=== PATIENT | male | born 1960 | race Caucasian/White ===

== ENCOUNTER → 2022-01-01 14:11 | Outpatient (CLI) | payer OTHER, SELFPAY ==
--- NOTE | ~2022-01-01 | XR_ITS ---
EXAMINATION: XR knee RT min 4V DATE: 01/01/2022 14:24 INDICATION: Right knee pain. TECHNIQUE: 4 views of right knee including standing views were obtained. COMPARISON: None. FINDINGS: Bone alignment is normal. No fracture. There is moderate osteoarthritis of medial compartme nt and mild osteoarthritis of lateral and patellofemoral compartments. No knee joint effusion. IMPRESSION: 1. Moderate right knee osteoarthritis. Reviewed, dictated and finalized at location B.
== END ==
PROVIDERS: PCP Family Medicine; Visit Provider Family Medicine
DX: M17.11 Unilateral primary osteoarthritis, right knee (principal)
CPT/HCPCS: 73564

== ENCOUNTER 2022-06-30 16:55 | Emergency (ER) | payer OTHER, SELFPAY ==
--- NOTE | 2022-06-30 17:04 | ED.WOUNDLAC ---
HPI - Wound/Laceration General Chief Complaint: Wound/Laceration Stated Complaint: forehead injury Time Seen by Provider: 06/30/22 17:00 Source: patient, family and RN notes reviewed History of Present Illness HPI narrative: Patient is 61-year-old male who presents the urgent care with complaints of a laceration across the forehead that happened approximately 1 hour ago. Patient states that a shelf fell on his head. Patient denies of any loss of consciousness and is currently not having any changes in vision or headache. Patient is not on a blood thinner. States that he had a tetanus shot in 2017. No other acute complaints. No acute distress noted. Patient read the plan of care. Some parts of this dictation were generated by voice recognition software and may contain typographical and/or grammatical inaccuracies. Related Data Home Medications Medication Instructions Recorded Confirmed cetirizine 10 mg tablet (All Day 10 mg PO DAILY PRN 06/27/21 01/01/22 Allergy (cetirizine)) Allergies Allergy/AdvReac Type Severity Reaction Status Date / Time No Known Allergies Allergy Verified 02/27/22 07:55 Review of Systems Review of Systems: CONSTITUTIONAL: Denies fever, chills, or sweats. EYES: Denies visual changes, redness, or discharge. ENT: Denies rhinorrhea, congestion, sore throat, or otalgia. CARDIOVASCULAR: Denies chest pain, palpitations, or edema. RESPIRATORY: Denies cough or dyspnea. GASTROINTESTINAL: Denies abdominal pain, nausea, vomiting, or diarrhea. GENITOURINARY: Denies dysuria or hematuria. SKIN: Reports of a laceration to the forehead MUSCULOSKELETAL: Denies back pain, joint pain, or myalgia. NEUROLOGIC: Denies headache, numbness, or weakness. All other systems reviewed are negative, except as documented in HPI. [facility] Past Medical History Medical History Actinic keratosis Acute non-recurrent maxillary sinusitis Arthritis BMI 34.0-34.9,adult BPH without obstruction/lower urinary tract symptoms Cataract (~1999) Chronic pain of right knee Moderate osteoarthritis of the right knee on x-ray on 01/01/2022. Encounter for prostate cancer screening Encounter for wellness examination in adult Headache Hypersomnia Obesity (BMI 30.0-34.9) Right knee meniscal tear (~2016) Seasonal allergic rhinitis Surgical History Surgical History History of surgical removal of meniscus of knee Hx of detached retina repair (~2000) Family History Family History Father Malignant neoplasm of prostate Hypertension Heart disease Lymphoma Mother Breast cancer Hypertension Cerebrovascular accident Sibling Cerebrovascular accident Skin cancer Social History Social History Smoking status: Never smoker Alcohol intake: current Drinks per week: 2 Alcohol use details: beer/wine Substance use: never Substance use type: does not use Comments At the time of my signature, I reviewed and agree with the nursing past medical, surgical, social, and family history. There is no relevant family history pertinent to the patient complaint. Exam Narrative: GENERAL: This is a well-nourished, well-developed patient, in no apparent distress. HEAD: normocephalic, atraumatic. EYES: PERRL. Sclera clear/white. Vision is grossly intact. EARS: External ears normal NOSE: External nose normal with no obvious nasal discharge, nares without redness, no rhinorrhea. THROAT: Mucous membranes moist NECK: Neck supple CARDIOVASCULAR: Regular rate and rhythm RESPIRATORY: Clear to auscultation. Breath sounds equal bilaterally. No wheezes, rales, or rhonchi. SKIN: 4 cm linear laceration to the forehead. Warm, intact with no suspicious lesions or rash, good texture and turgor. NEURO: awake, alert, and
[2022-06-30 17:12] VITALS: BP 143/105; PULSE 94; RESP 16; TEMP 37.1; O2SAT 98
== END 2022-06-30 17:56 | disposition home or self-care (01) ==
PROVIDERS: Emergency Provider Nurse Practitioner Family; PCP Family Medicine
DX: S01.81XA Laceration without foreign body of other part of head, initial encounter (principal); W20.8XXA Other cause of strike by thrown, projected or falling object, initial encounter; M19.90 Unspecified osteoarthritis, unspecified site; E66.9 Obesity, unspecified; Z68.33 Body mass index [BMI] 33.0-33.9, adult; N40.1 Benign prostatic hyperplasia with lower urinary tract symptoms
CPT/HCPCS: 12013; 99212; G0463

== ENCOUNTER 2023-10-17 05:49 | Day surgery (SDC) | payer OTHER, SELFPAY ==
--- NOTE | 2023-10-16 10:44 | WPDANESEPPF ---
Anes - Initial Pre Proc Eval Procedure: Operation Date: 10/17/23 07:30 Proposed Procedures p Screening Colonoscopy - Luis Patel MD Date/Time: 10/16/23 10:44 Surgeon: Luis Patel MD Pre Op Diagnosis: Neoplasm Screening Patient Data Age: 63 Gender: M Height: 1.8 m Weight: 116.573 kg Allergies Allergy/AdvReac Type Severity Reaction Status Date / Time No Known Allergies Allergy Verified 10/17/23 06:21 Home Medications Medication Instructions Recorded Confirmed Type cetirizine 10 mg tablet (All Day 10 mg PO DAILY PRN Allergic 06/27/21 10/17/23 History Allergy (cetirizine)) Symptoms sodium,potassium,mag sulfates 17.5 See Rx Instructions PO .COMPLEX 08/02/23 10/17/23 Rx gram-3.13 gram-1.6 gram oral soln #354 mL (Suprep Bowel Prep Kit) nirmatrelvir 300 mg (150 mg See Rx Instructions PO .COMPLEX 09/30/23 10/17/23 Rx x2)-ritonavir 100 mg tablet,dose #30 ea pack (Paxlovid) Vitamin C 1 pill PO DIRECTED 10/01/23 10/17/23 History Patient hx anesthesia problems: none Family hx anesthesia problems: none Results Review: All pre-operative results and documents have been reviewed as part of the pre-operative evaluation. [facility] Past Medical History Medical History (Updated 09/30/23 @ 14:17 by Benito Wheeler MD) Actinic keratosis Acute non-recurrent maxillary sinusitis BMI 34.0-34.9,adult BMI 35.0-35.9,adult BPH without obstruction/lower urinary tract symptoms Cataract (~1999) Chronic pain of right knee Moderate osteoarthritis of the right knee on x-ray on 01/01/2022. Colon cancer screening patient reports normal colonoscopy at age 52 with recheck in 10 years. COVID-19 (09/28/23) Encounter for prostate cancer screening PSA 1.6 on 07/31/2022. PSA 1.3 on 08/01/2023. Encounter for wellness examination in adult Headache Hypersomnia Obesity (BMI 30-39.9) Obesity (BMI 30.0-34.9) Renal stone (~07/2021) passed stone at home 2 weeks after last prostate exam 2020 Right knee meniscal tear (~2016) Seasonal affective disorder (~07/31/23) Seasonal allergic rhinitis Surgical History Surgical History (Updated 01/29/23 @ 15:32 by Js Starr MD) History of surgical removal of meniscus of knee 2017 - Dr. Pereira Hx of detached retina repair (~2000) Family History Family History Father Malignant neoplasm of prostate Hypertension Heart disease Lymphoma Mother Breast cancer Hypertension Cerebrovascular accident Sibling Cerebrovascular accident Skin cancer Social History Social History Smoking status: Never smoker Alcohol intake: current Drinks per week: 3 Alcohol use details: beer/wine Substance use: never Substance use type: does not use Lack of Transportation: No Lack of Food: Never True Current Housing: I Have Housing Concerned About Future Housing: No Difficulty Paying Gas/Electric Bills: No Difficulty Paying for Meds: No Currently Unemployed: No Education: Bachelor's Degree Difficulty w/ Childcare or Family Care: No Living arrangements: with family Anes - Eval Final PreProcedure Day of Procedure 10/16/23 10:44 Patient weight: obese Heart: regular rate and rhythm Lungs: clear to auscultation Airway: Mallampati scale class II Neurological: alert and oriented Last oral intake: >/= 8 hours ASA classification: II Emergent: no Anesthetic plan: proceed Anesthesia type and monitoring: general GIVS and standard monitoring Results Review: All pre-operative results and documents have been reviewed as part of the pre-operative evaluation. Informed Consent: The patient's anesthetic plan and its attendant risks and benefits were discussed with the patient/family/POA. Questions were solicited and answers provided to the satisfaction of the patient/family/POA.
[2023-10-17 06:23] VITALS: BP 149/101; PULSE 73; RESP 20; TEMP 36.8; O2SAT 96
[2023-10-17] MEDS: LACTATED RINGERS 1,000 ML 150 ML IV CONT (06:34)
--- NOTE | 2023-10-17 07:05 | PM.HPGS ---
History of Present Illness History of Present Illness Consent: Risks, benefits, and alternatives have been discussed and questions answered. Patient agrees to proceed with procedure. Chief complaint: Neoplasm Screening Narrative: Ace Boles is a 63 year old male presents for screening colonoscopy. Patient reports his current weight appetite and bowel movements are normal. Patient denies abdominal pain. He has had no bleeding. Previous colonoscopy 10 years ago was unremarkable. Review of Systems Review of Systems: Review of systems is noncontributory. [facility] Past Medical History Medical History (Updated 09/30/23 @ 14:17 by Benito Wheeler MD) Actinic keratosis Acute non-recurrent maxillary sinusitis BMI 34.0-34.9,adult BMI 35.0-35.9,adult BPH without obstruction/lower urinary tract symptoms Cataract (~1999) Chronic pain of right knee Moderate osteoarthritis of the right knee on x-ray on 01/01/2022. Colon cancer screening patient reports normal colonoscopy at age 52 with recheck in 10 years. COVID-19 (09/28/23) Encounter for prostate cancer screening PSA 1.6 on 07/31/2022. PSA 1.3 on 08/01/2023. Encounter for wellness examination in adult Headache Hypersomnia Obesity (BMI 30-39.9) Obesity (BMI 30.0-34.9) Renal stone (~07/2021) passed stone at home 2 weeks after last prostate exam 2020 Right knee meniscal tear (~2016) Seasonal affective disorder (~07/31/23) Seasonal allergic rhinitis Surgical History Surgical History (Updated 01/29/23 @ 15:32 by Js Starr MD) History of surgical removal of meniscus of knee 2016 - Dr. Pereira Hx of detached retina repair (~2000) Family History Family History Father Malignant neoplasm of prostate Hypertension Heart disease Lymphoma Mother Breast cancer Hypertension Cerebrovascular accident Sibling Cerebrovascular accident Skin cancer Social History Social History Smoking status: Never smoker Alcohol intake: current Drinks per week: 3 Alcohol use details: beer/wine Substance use: never Substance use type: does not use Lack of Transportation: No Lack of Food: Never True Current Housing: I Have Housing Concerned About Future Housing: No Difficulty Paying Gas/Electric Bills: No Difficulty Paying for Meds: No Currently Unemployed: No Education: Bachelor's Degree Difficulty w/ Childcare or Family Care: No Living arrangements: with family Meds Home Medications and Allergies Home Medications Medication Instructions Recorded Confirmed Type cetirizine 10 mg tablet (All Day 10 mg PO DAILY PRN Allergic 06/27/21 10/17/23 History Allergy (cetirizine)) Symptoms sodium,potassium,mag sulfates 17.5 See Rx Instructions PO .COMPLEX 08/02/23 10/17/23 Rx gram-3.13 gram-1.6 gram oral soln #354 mL (Suprep Bowel Prep Kit) nirmatrelvir 300 mg (150 mg See Rx Instructions PO .COMPLEX 09/30/23 10/17/23 Rx x2)-ritonavir 100 mg tablet,dose #30 ea pack (Paxlovid) Vitamin C 1 pill PO DIRECTED 10/01/23 10/17/23 History Allergies Allergy/AdvReac Type Severity Reaction Status Date / Time No Known Allergies Allergy Verified 10/17/23 06:21 Vital Signs Vital Signs - 24 hr 10/17/23 06:23 Temperature 98.3 F Pulse Rate 73 Respiratory Rate 20 Blood Pressure 149/101 H Pulse Oximetry 96 Oxygen Delivery Room Air Exam Narrative: Physical exam reveals patient to be alert. Vital signs stable. HEENT exam is unremarkable. Patient is anicteric. Lungs are clear to auscultation and to percussion. Heart is without murmur or extra sounds. Abdomen bowel sounds are present soft nontender with an [employer] Kelsey. Digital external rectal exam is normal. Assessment and Plan Assessment and plan (1) Colon cancer screening: Code(s): Z12.11 - Encounter for screening for malignant
[2023-10-17] MEDS: SIMETHICONE ORAL SUSPENSION 20 MG/0.3 ML 30 ML BOTTLE 0.6 ML IRRIGATION (07:28)
[2023-10-17 07:39] VITALS: BP 136/94; PULSE 73; RESP 16; O2SAT 97
[2023-10-17 07:40] VITALS: BP 132/90; PULSE 68; RESP 16; O2SAT 97
[2023-10-17 07:50] VITALS: BP 137/90; PULSE 68; RESP 16; O2SAT 99
[2023-10-17 07:55] VITALS: BP 139/90; PULSE 70; RESP 16; O2SAT 99
--- NOTE | 2023-10-17 11:30 | WPDANESPN ---
Anes - Prog Note Post-Op Date/Time: 10/17/23 11:30 Cardiovascular status: normal Respiratory status: normal Airway patency: baseline Mental status: baseline Post-Op hydration status: normal Vital Signs: Last Vital Signs Temp 36.8 C 10/17/23 06:23 Pulse 70 10/17/23 07:55 Resp 16 10/17/23 07:55 BP 139/90 10/17/23 07:55 Pulse Ox 99 10/17/23 07:55 O2 Del Method Room Air 10/17/23 07:55 Pain Score (VAS): 0 I/O: Intake & Output 10/16/23 10/17/23 10/17/23 23:59 07:59 15:59 Intake Total 400 300 Balance 400 300 Post-procedural complaints: none Patient Feedback: Patient satisfied with anesthetic care. Other Findings: Patient vital signs back to baseline. Patient denies nausea and vomiting. Patient's pain under control. Patient OK for discharge.
== END 2023-10-17 08:08 | disposition home or self-care (01) ==
PROVIDERS: PCP Family Medicine; Visit Provider Internal Medicine Gastroenterology
PROC: 0DJD8ZZ Inspection of Lower Intestinal Tract, Via Natural or Artificial Opening Endoscopic (ICD-10-PCS; CPT 45378; principal; 2023-10-17 07:30)
DX: Z12.11 Encounter for screening for malignant neoplasm of colon (principal); D12.5 Benign neoplasm of sigmoid colon; K57.30 Diverticulosis of large intestine without perforation or abscess without bleeding; K64.8 Other hemorrhoids
CPT/HCPCS: 45385

== ENCOUNTER 2024-01-09 15:10 | Outpatient (CLI) | payer OTHER, SELFPAY ==
--- NOTE | ~2024-01-09 | MR_ITS ---
EXAMINATION: MR knee LT wo con DATE: 01/09/2024 15:52 INDICATION: Left knee pain TECHNIQUE: Magnetic resonance imaging (MRI) of the left knee was performed without intravenous contra st. Sequences included coronal PD-weighted FSE, coronal PD-weighted FS FSE, sagittal T2-weighted FSE , sagittal PD-weighted FS FSE and axial PD weighted fat saturated FSE. COMPARISON: Left knee radiographs dated 11/22/2023 FINDINGS: Medial compartment: Complex tear of the posterior horn of the medial meniscus with displacement of a flap comprising a po rtion of the lateral side of the posterior horn which is flipped cephalad along the medial margin of the vertical/distal portion of the posterior cruciate ligament. There is a 6 x 5 mm partial-thickness chondral ulceration involving approximately 50% the cartilage thickness but without degenerative sub chondral changes at the central aspect of the anterior weightbearing medial femoral condyle. Minimal subarticular edema-like signal change underlying the lateral side of the posterior horn medial menisc us which could relate either stress reaction related to altered weight distribution resulting from th e meniscal tear or due to overlying chondromalacia. Lateral compartment: Lateral meniscus is normal. Small region of deep chondral ulceration at the anterior weightbearing la teral femoral condyle and juxtaposed central aspect of the lateral tibial plateau, the former with mi nimal underlying subarticular edema-like signal change. Patellofemoral compartment: There is deep chondral ulceration with underlying subarticular edema-like signal change at both the m edial and lateral patellar facets. Additional small focus of subarticular edema-like signal change at the lateral trochlea but without evident overlying cartilage ulceration or fissuring. Ligaments and tendons: Anterior and posterior cruciate ligaments are normal. The medial collateral ligament and fibular denise ateral ligament complex are normal. The extensor mechanism is normal. The visualized medial and later al hamstring tendons as well as the iliotibial band are normal. Fluid: Small amount of fluid and mild synovitis at the suprapatellar pouch. No loose osteochondral bodies id entified. There is a moderate-sized Watts's cyst which measures 5.3 cm craniocaudally by 3.1 x 1.5 cm in maximal transaxial dimensions. Osseous/other: Bone alignment is normal. No fracture or pathologic marrow replacing process. IMPRESSION: 1. Complex. The posterior horn of the medial meniscus with displaced meniscal flap. 2. Mild tricompartmental osteoarthritis with small regions of moderate and high-grade chondromalacia in the medial lateral compartments and more extensively along the patella in the patellofemoral saravanan rtment. 3. Likely reactive small knee joint effusion with mild synovitis. 4. Moderate-sized Watts's cyst. Reviewed, dictated and finalized at location A. IMPRESSION: 1. Complex. The posterior horn of the medial meniscus with displaced meniscal f lap. 2. Mild tricompartmental osteoarthritis with small regions of moderate and high -grade chondromalacia in the medial lateral compartments and more extensively a long the patella in the patellofemoral compartment. 3. Likely reactive small knee joint effusion with mild synovitis. 4. Moderate-sized Watts's cyst.
== END 2024-01-09 15:11 ==
PROVIDERS: PCP Family Medicine; Visit Provider Nurse Practitioner Family
DX: M25.562 Pain in left knee (principal); S83.232A Complex tear of medial meniscus, current injury, left knee, initial encounter; M17.12 Unilateral primary osteoarthritis, left knee; M25.462 Effusion, left knee; M71.22 Synovial cyst of popliteal space [Baker], left knee
CPT/HCPCS: 73721

== ENCOUNTER 2024-01-28 01:50 | Day surgery (SDC) | payer OTHER, SELFPAY ==
[2024-01-22 14:10] VITALS: BMI 34.0
--- NOTE | 2024-01-22 14:11 | PC.NURSE ---
Report to the Outpatient Waiting Room, entrance under the green pavilion located off [facility], at time _1100_ on date _[id number]_. Planned Procedure Time: _1300_. Time changes happen often and if your time is changed the preop area will call you the afternoon before. - You and your visitor will be asked to self-screen and do not enter if you have any COVID symptoms. - A mask is optional within the hospital at this time. Patients may have clear liquids (water, carbonated beverages, clear teas, apple juice) until 3 hours prior to surgery with a maximum of 20 ounces. - No food from midnight until time of surgery Take the following medications with a SIP of water the morning of surgery: ____None DO NOT STOP ANY OF YOUR OTHER PRESCRIPTION MEDICATIONS PRIOR TO SURGERY ?EXCEPT THE FOLLOWING Medications to discontinue per physician ____Vitamin C Date to take last [id number] Stop Ibuprofen as instructed by Dr Singletary. Please no make-up, nail rwandan, hairspray, perfume, deodorant, or body powder the day of surgery. No jewelry (including any body piercings) or valuables the day of surgery, leave them at home. Please take a shower or bath the night before, or the morning of, surgery with an antibacterial soap. Wear comfortable, loose fitting clothing. - Jewelry must be removed prior to entering the operating room. Rings and piercings that are not removed may be cut off. - The hospital will not accept responsibility for valuables. - Please leave all valuables, including medications, at home the day of surgery. If you are going home after surgery, a licensed route driver salesperson must drive you home. - NO public transportation without another adult if you receive anesthesia. - We recommend that an adult stay with you for 24 hours following discharge. - We also recommend that you do not drive, make important decision, drink alcoholic beverages, or take any drugs that were not prescribed by your health care provider for at least 24 hours after your discharge time. Follow any additional instructions given to you from your surgeon. If you or anyone in your household have experienced Covid symptoms in the past week, please notify your surgeon or the nurse liaison at the phone number below for possible testing. Telephone instructions given to _Ace___and asked if any additional questions and then verbalized understanding. Patient advised to call surgeon office or pre surgery nurse liaison [phone] if any additional questions.
[2024-01-28] VITALS (12 sets, daily range): BP systolic 147–183; BP diastolic 90–119; PULSE 66–86; RESP 12–16; TEMP 36.1–36.2; O2SAT 94–100
--- NOTE | 2024-01-28 08:36 | WPDHPUPDATE1 ---
History and Physical Update Update Date/Time: 01/28/24 08:36 History and Physical has been reviewed, including an updated exam of the patient. There are NO changes in the patient's condition. Risks, benefits, and alternatives have been discussed and questions answered. Patient agrees to proceed with procedure.
[2024-01-28] MEDS: CELECOXIB 200 MG CAPSULE PO (12:05)
[2024-01-28] MEDS: ACETAMINOPHEN 500 MG TABLET 1000 MG PO (12:05)
[2024-01-28] MEDS: LACTATED RINGERS 1,000 ML 30 ML IV CONT ×2 (12:17→14:50)
--- NOTE | 2024-01-28 12:56 | WPDANESEPPF ---
Anes - Initial Pre Proc Eval Procedure: Operation Date: 01/28/24 13:30 Proposed Procedures p Left Knee Arthroscopy - Charlie Singletary MD Date/Time: 01/28/24 12:56 Surgeon: Charlie Singletary MD Pre Op Diagnosis: left knee medial meniscus tear Patient Data Age: 63 Gender: M Height: 1.83 m Weight: 113.6 kg Allergies Allergy/AdvReac Type Severity Reaction Status Date / Time No Known Allergies Allergy Verified 01/28/24 11:52 Home Medications Medication Instructions Recorded Confirmed Type cetirizine 10 mg tablet (All Day 10 mg PO DAILY PRN Allergic 06/27/21 01/28/24 History Allergy (cetirizine)) Symptoms Vitamin C 1 pill PO DIRECTED 10/01/23 01/28/24 History chlorhexidine gluconate 4 % 1 applic topical ONCE #237 mL 01/21/24 01/22/24 Rx topical liquid (Hibiclens) ibuprofen 200 mg tablet 600 mg PO Q6H PRN Pain 01/22/24 01/28/24 History hydrocodone 5 mg-acetaminophen 325 1 tablet PO Q12H PRN pain #20 tabs 01/28/24 Rx mg tablet Patient hx anesthesia problems: none Family hx anesthesia problems: none Results Review: All pre-operative results and documents have been reviewed as part of the pre-operative evaluation. [facility] Past Medical History Medical History Actinic keratosis Acute non-recurrent maxillary sinusitis BMI 34.0-34.9,adult BMI 35.0-35.9,adult BPH without obstruction/lower urinary tract symptoms Cataract (~1999) Chronic pain of right knee Moderate osteoarthritis of the right knee on x-ray on 01/01/2022. Colon cancer screening patient reports normal colonoscopy at age 52 with recheck in 10 years. COVID-19 (09/28/23) Effusion of knee joint Encounter for prostate cancer screening PSA 1.6 on 07/31/2022. PSA 1.3 on 08/01/2023. Encounter for wellness examination in adult Headache Hypersomnia Left knee DJD Left knee pain Medial meniscus tear Obesity (BMI 30-39.9) Obesity (BMI 30.0-34.9) Polyp of colon (10/17/23) small polyp sigmoid colon 10/17/2023. Renal stone (~07/2021) passed stone at home 2 weeks after last prostate exam 2020 Right knee DJD Right knee meniscal tear (~2016) Seasonal affective disorder (~07/31/23) Seasonal allergic rhinitis Surgical History Surgical History History of surgical removal of meniscus of knee 2017 - Dr. Pereira Hx of detached retina repair (~2000) Family History Family History Father Malignant neoplasm of prostate Hypertension Heart disease Lymphoma Mother Breast cancer Hypertension Cerebrovascular accident Sibling Cerebrovascular accident Skin cancer Social History Social History Smoking status: Never smoker Alcohol intake: current Drinks per week: 3 Alcohol use details: beer/wine Substance use: never Substance use type: does not use Lack of Transportation: No Lack of Food: Never True Current Housing: I Have Housing Concerned About Future Housing: No Difficulty Paying Gas/Electric Bills: No Difficulty Paying for Meds: No Currently Unemployed: No Education: Bachelor's Degree Difficulty w/ Childcare or Family Care: No Living arrangements: with family Spiritual care concerns: No Anes - Eval Final PreProcedure Day of Procedure 01/28/24 12:56 Patient weight: obese Heart: regular rate and rhythm Lungs: clear to auscultation Airway: Mallampati scale and special considerations (Chip to L upper incisor. ) Neurological: alert and oriented Last oral intake: >/= 8 hours ASA classification: II Emergent: no Anesthetic plan: proceed Anesthesia type and monitoring: general LMA and standard monitoring Results Review: All pre-operative results and documents have been reviewed as part of the pre-operative evaluation. Informed Consent: The
[2024-01-28] MEDS: ceFAZolin 2 GM/D5W 50 ML 2 GM/50 ML BAG IVPB (13:15)
[2024-01-28] MEDS: BUPivacaine HCL 0.5% 10 ML AMP 30 ML INFILTRATE (13:42)
--- NOTE | 2024-01-28 14:54 | W.PM.PROC2 ---
Procedure Note - Detailed Date of Procedure 01/28/24 Pre-op Diagnosis left knee medial meniscus tear Post-op Diagnosis Other (LEFT MEDIAL AND LATERAL MENISCUS TEAR) Procedure Performed LEFT KNEE SCOPE Surgeon Charlie Singletary MD Anesthesia General Description of Procedure PATIENT WAS TAKEN TO THE OR. THE LEFT LEG WAS PREPPED AND DRAPED STERILE. TROCARS WERE PLACED IN THE USUAL FASHION. CAMERA WAS INTRODUCED. THERE WAS CHONDROMALACIA TO THE PATELLA FEMORAL JOINT. THERE WAS A LOT OF SYNOVITIS IN ALL COMPARTMENTS. THE MEDIAL COMPARTMENT SHOWED GRADE 3 CHONDROMALACIA TO THE MEDIAL FEMORAL CONDYLE. A SHAVER WAS USED TO PREFORM A CHONDROPLASTY. THERE WAS A LARGE COMPLEX MEDIAL MENISCUS TEAR WHICH INVOLVED A FAIRLY LARGE FLAP OF ROOT TEAR. THE TEAR WAS RESECTED WITH A BITER AND A SHAVER DOWN TO A SMOOTH BASE. THE ACL WAS INTACT. THE LATERAL MENISCUS WAS TORN AT THE MID SECTION AND AT THE POSTERIOR HORN. THE TEAR WAS RESECTED. THE LATERAL COMPARTMENT HAD GRADE 2 CHONDROMALACIA. CHONDROPLASTY WAS PREFORMED. A SYNOVECTOMY WAS PREFORMED WELL. THE PATELLO FEMORAL JOINT UNDERWENT CHONDROPLASTY. THERE WAS GRADE 2-3 CHONDROMALACIA IN MOST OF THE TROCHLEA AND PART OF THE PATELLA. SYNOVECTOMY WAS PREFORMED IN THE SUPERIOR MEDIAL COMPARTMENT. THE WOUNDS WERE APPROXIMATED WITH 4.0 NYLON. STERILE DRESSING WAS APPLIED. PATIENT WAS EXTUBATED. Estimated Blood Loss 5 Complications No immediate complications Condition Stable Disposition PACU
[2024-01-28] MEDS: fentaNYL CITRATE INJ (*CRX) 100 MCG/2 ML VIAL 25 MCG IV PUSH ×8 (15:00→15:25)
[2024-01-28] MEDS: LABETALOL HCL INJ 100 MG/20 ML VIAL IV PUSH ×2 (15:13→15:42)
[2024-01-28] MEDS: hydrALAZINE HCL 20 MG/ML VIAL 10 MG IV PUSH (15:41)
== END 2024-01-28 16:53 | disposition home or self-care (01) ==
PROVIDERS: PCP Family Medicine; Visit Provider Orthopaedic Surgery
PROC: (CPT 29870; principal; 2024-01-28 13:30)
DX: S83.232A Complex tear of medial meniscus, current injury, left knee, initial encounter (principal); S83.282A Other tear of lateral meniscus, current injury, left knee, initial encounter; W01.0XXA Fall on same level from slipping, tripping and stumbling without subsequent striking against object, initial encounter; N40.0 Benign prostatic hyperplasia without lower urinary tract symptoms; E66.9 Obesity, unspecified; Z68.34 Body mass index [BMI] 34.0-34.9, adult
CPT/HCPCS: 29880; A9270; J0360; J0690; J1100; J2250; J2405; J2704; J3010; J7120

== ENCOUNTER → 2024-08-05 08:52 | Outpatient (CLI) | payer OTHER, SELFPAY ==
--- NOTE | ~2024-08-05 | XR_ITS ---
Right foot Technique: AP, oblique, and lateral views were obtained. Clinical History: Chronic forefoot pain Findings: No acute fracture or dislocation is seen. There is mild degenerative change of the first MT P joint. Soft tissues are unremarkable. 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 Reviewed, dictated and finalized at [facility]. 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
== END ==
LOC: EXPTRAD 08:54
PROVIDERS: PCP Family Medicine; Visit Provider Family Medicine
DX: M19.071 Primary osteoarthritis, right ankle and foot (principal)
CPT/HCPCS: 73630